=== PATIENT | female | born 1955 | race Hispanic/Latino ===

== ENCOUNTER → 2019-08-06 | Outpatient (CLI) | payer OTHER ==
[~2019-08-06] VITALS: Ht 152.4 cm; Wt 69.4 kg
[~2019-08-06] MED LIST: REGADENOSON 0.4 MG/5 ML PF SYG IVP SCH
== END | disposition home or self-care (01) ==
LOC: SHCH 08:41
PROVIDERS: ATTEND Internal Medicine Cardiovascular Disease
DX: R07.9 Chest pain, unspecified (principal)
CPT/HCPCS: 78452; 93017; 96374; A9500 ×2; J2785

== ENCOUNTER 2019-08-22 07:15 | Day surgery (SDC) | payer OTHER ==
[2019-08-20 15:04] LABS: EOSINOPHILS % (AUTO) 3.9 % (0.0-8.0); HEMATOCRIT 40.1 % (36-48); LYMPHOCYTES % (AUTO) 24.5 % (21.0-51.0); MEAN CORPUSCULAR HEMOGLOBIN 31.2 pg (27.0-33.0); MEAN CORPUSCULAR VOLUME 91.9 fL (79-99); MONOCYTES % (AUTO) 6.4 % (3.0-13.0); NEUTROPHILS % (AUTO) 64.2 % (40.0-77.0); NUCLEATED RED BLOOD CELLS 0.1 % (0.0-0.19); PLATELET COUNT (AUTO) 194 K/uL (130-400); RED BLOOD CELL COUNT(AUTO) 4.36 MIL/uL (4.00-5.50); RED CELL DISTRIBUTION WIDTH 12.8 % (11.0-15.5); WHITE BLOOD COUNT (AUTO) 7.7 K/uL (4.8-10.8)
[2019-08-20 15:09] VITALS: BP 111/49
[2019-08-20 15:09] LABS: APPEARANCE,URINE Clear (CLEAR); BILIRUBIN,URINE Negative (NEGATIVE); COLOR,URINE Yellow (YELLOW); GLUCOSE, URINE (UA) Negative (NEGATIVE); KETONES,URINE Negative (NEGATIVE); LEUKOCYTE ESTERASE ,URINE Small (NEGATIVE); NITRATE,URINE Negative (NEGATIVE); OCCULT BLOOD,URINE Negative (NEGATIVE); PH,URINE 6.5 (5.0-8.0); PROTEIN,URINE Negative (NEGATIVE)
[2019-08-20 15:14] LABS: CREATININE 1.1 mg/dL (0.5-1.5)
[2019-08-20 15:17] LABS: INR 0.93 (0.85-1.15); PARTIAL THROMBOPLASTIN TIME 26.6 SEC (26.3-35.5); PROTHROMBIN TIME 9.8 SEC (9.6-11.6)
[2019-08-20 15:27] LABS: BACTERIA,URINE Few /HPF (None Seen); SQUAMOUS EPITHELIAL CELL,UR Few /HPF (0-2)
--- NOTE | 2019-08-21 15:51 | NUR ---
LABS ABNORMAL UA REPORTED TO SONNY DAVENPORT, NO FURTHER ORDERS GIVEN
[~2019-08-22] VITALS: Ht 157.5 cm; Wt 69.9 kg
[2019-08-22] VITALS (9 sets, daily range): BP systolic 92–110; BP diastolic 46–59
[~2019-08-22 07:15] MED LIST changes: +ATOR-2 PO; +ISOS10TA2 PO; +ISOS5TAB5 SL; +LISI40TA4 PO; +PARO-37 PO; -REGADENOSON 0.4 MG/5 ML PF SYG IVP SCH; +SODIUM CHLORIDE 0.9% 500ML 500 ML IV SCH
[2019-08-22] MEDS ORDERED: LIDOCAINE HCL 2% 20ML ONE (10:08)
[2019-08-22] MEDS ORDERED: NITROGLYCERIN 5 MG/ML 10 ML VIAL IV ONE (10:08)
[2019-08-22] MEDS ORDERED: IOHEXOL-350 50ML VIAL IV ONE ×2 (10:08→11:21)
[2019-08-22] MEDS ORDERED: IOHEXOL-350 75 ML VIAL IV ONE (10:08)
[2019-08-22] MEDS ORDERED: NICARDIPINE HCL 25 MG/10 ML ML IV ONE (10:42)
[2019-08-22] MEDS ORDERED: HEPARIN SODIUM 1000UNIT/ML 10ML VIAL ONE (10:58)
[2019-08-22] MEDS ORDERED: MIDAZOLAM HCL 1 MG/ML 2ML VIAL ONE (11:01)
[2019-08-22] MEDS ORDERED: FENTANYL CITRATE PF 50 MCG/1 ML 2ML VIAL ONE (11:01)
[2019-08-22] MEDS ORDERED: SODIUM CHLORIDE 0.9% 1000ML 1,000 ML IV SCH (11:36)
== END 2019-08-22 15:20 | disposition home or self-care (01) ==
LOC: DAH 07:15
PROVIDERS: ATTEND Internal Medicine Cardiovascular Disease
DX: I20.8 Other forms of angina pectoris (principal); R94.39 Abnormal result of other cardiovascular function study; I10 Essential (primary) hypertension; E78.5 Hyperlipidemia, unspecified; Z79.899 Other long term (current) drug therapy; E78.00 Pure hypercholesterolemia, unspecified; Z90.710 Acquired absence of both cervix and uterus; Z98.51 Tubal ligation status; Z98.890 Other specified postprocedural states; Z82.49 Family history of ischemic heart disease and other diseases of the circulatory system
CPT/HCPCS: 36415; 71045; 80048; 81001; 85025; 85610; 85730; 93005; 93458; A4215; A4216; A4221; A4222; A4223 ×3; A4606; A4663; C1769; C1894; J1644 ×2; J2250; J3010; J3490 ×3; Q9967 ×2; 99156; 99157

== ENCOUNTER 2019-09-28 23:43 | Emergency (ER) | payer OTHER ==
[~2019-09-28 23:43] MED LIST changes: -ISOS10TA2 PO; -ISOS5TAB5 SL; -SODIUM CHLORIDE 0.9% 500ML 500 ML IV SCH
[2019-09-29] MEDS ORDERED: METHYLPREDNISOLONE SOD SUCC 40MG/ML 1ML ONE (00:15)
[2019-09-29] MEDS ORDERED: DiphenhydrAMINE HCL 50 MG/ML VIAL ONE (00:15)
[2019-09-29] MEDS ORDERED: FAMOTIDINE/PF 20 MG/2 ML VIAL IV ONE (00:15)
[2019-09-29] MEDS ORDERED: ONDANSETRON HCL 4 MG/2 ML VIAL ONE (01:05)
[2019-09-29] MEDS ORDERED: SODIUM CHLORIDE 0.9% 1000ML 1,000 ML IV ONE (01:06)
[2019-09-29 02:30] LABS: APPEARANCE,URINE Clear (CLEAR); BILIRUBIN,URINE Negative (NEGATIVE); COLOR,URINE Yellow (YELLOW); GLUCOSE, URINE (UA) Negative (NEGATIVE); KETONES,URINE Negative (NEGATIVE); LEUKOCYTE ESTERASE ,URINE Negative (NEGATIVE); NITRATE,URINE Negative (NEGATIVE); OCCULT BLOOD,URINE Negative (NEGATIVE); PH,URINE 6.5 (5.0-8.0); PROTEIN,URINE Negative (NEGATIVE); UROBILINOGEN,URINE 0.2 mg/dL (0.2-1.0)
== END 2019-09-29 02:59 | disposition home or self-care (01) ==
LOC: EDH 23:43
DX: L50.0 Allergic urticaria (principal); R11.0 Nausea; F41.9 Anxiety disorder, unspecified; E78.5 Hyperlipidemia, unspecified; I10 Essential (primary) hypertension; Z88.1 Allergy status to other antibiotic agents; Z90.710 Acquired absence of both cervix and uterus; Z98.61 Coronary angioplasty status
CPT/HCPCS: 81003; 96361; 96374; 96375; 99284; J1200; J2405; J2920; J3490; J7030

== ENCOUNTER → 2024-12-26 | Outpatient (CLI) | payer OTHER, MEDICARE ==
[~2024-12-26] MED LIST changes: -LISI40TA4 PO; +LISI40TA9 PO
[2024-12-26 12:27] LABS: BASOPHILS # (AUTO) 0.05 K/uL (0.00-0.20); BASOPHILS % (AUTO) 0.9 % (0.0-5.0); EOSINOPHILS # (AUTO) 0.21 K/uL (0.00-0.70); EOSINOPHILS % (AUTO) 3.8 % (0.0-8.0); HEMATOCRIT 45.9 % (36-48); IMMATURE GRANULOCYTE ABSOLUTE 0.01 K/uL (0-1); LYMPHOCYTES # (AUTO) 1.4 K/uL (1.0-4.8); LYMPHOCYTES % (AUTO) 24.4 % (21.0-51.0); MEAN CORPUSCULAR HEMOGLOBIN 31.1 pg (27.0-33.0); MEAN CORPUSCULAR HGB CONC 32.9 g/dL (32.0-36.0); MEAN CORPUSCULAR VOLUME 94.4 fL (79-99); MONOCYTES # (AUTO) 0.4 K/uL (0.1-1.0); MONOCYTES % (AUTO) 7.4 % (3.0-13.0); NEUTROPHILS # (AUTO) 3.5 K/uL (1.8-7.7); NEUTROPHILS % (AUTO) 63.3 % (40.0-77.0); PLATELET COUNT (AUTO) 193 K/uL (130-400); RED BLOOD CELL COUNT(AUTO) 4.86 MIL/uL (4.00-5.50); RED CELL DISTRIBUTION WIDTH 12.5 % (11.0-15.5); WHITE BLOOD COUNT (AUTO) 5.5 K/uL (4.8-10.8)
[2024-12-26 12:59] LABS: BILIRUBIN,TOTAL 0.5 mg/dL (0.2-1.0); CREATININE 0.8 mg/dL (0.5-1.0); POTASSIUM 3.9 mmol/L (3.5-5.1); TOTAL PROTEIN, SERUM 7.5 g/dL (6.0-8.3)
== END | disposition home or self-care (01) ==
LOC: LAB 08:48
PROVIDERS: ATTEND Internal Medicine Cardiovascular Disease
DX: R07.9 Chest pain, unspecified (principal)
CPT/HCPCS: 36415; 80053; 80061; 85025

== ENCOUNTER → 2025-01-01 | Outpatient (CLI) | payer OTHER, MEDICARE ==
[~2025-01-01] MED LIST changes: +IOHEXOL 350 MG/ML 100ML INFUS..BTL IV ONE
--- NOTE | 2025-01-01 11:46 | HMCIMG ---
CT CARDIAC ANGIO W/CONT. CCTA HISTORY: Chest pain COMPARISON: None TECHNIQUE: Multiple sequential axial images of the chest were obtained along with the CT angiogram of the chest study. Patient was given 100 cc of Omnipaque through intravenous route. FINDINGS: There is no evidence of pulmonary nodule or parenchymal disease. No pleural effusion or pericardial effusion is seen. There is no evidence of pneumothorax. There are normal size mediastinal and hilar lymph nodes. The heart is not enlarged. Degenerative changes of the thoracolumbar spine are present. IMPRESSION: 1. No evidence of pulmonary nodule or effusion is seen. Please see CT angiogram report of coronary arteries.
--- NOTE | 2025-01-04 18:59 | CARDIOLOGY ---
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 A dedicated, limited window, coronary imaging protocol was used, with single breath-hold, retrospective ECG gating, and automated arrhythmia rejection. 100 cc of low osmolar contrast agent: Omnipaque 350 was delivered via a 18-gauge IV catheter in the right antecubital fossa, using a power injector and followed by 60 cc of normal saline bolus as a chaser. Collimated images were reformatted at 0.5 mm intervals, and sent to an offline independent workstation for interpretation, using 3D anatomic reconstructions: Curved multiplanar reconstructions, maximum intensity projections, and multiplanar imaging. No metoprolol was administered prior to scanning due to low baseline heart rate. 0.4 mg SL nitroglycerin was given. CORONARY ARTERY DESCRIPTIONS: The coronary arteries arise in normal position. Left main coronary artery: Normal caliber vessel that bifurcates into the LAD and LCx. No stenosis. Left anterior descending coronary artery: Normal caliber vessel and gives rise t o diagonal and septal branches. No stenosis. Left circumflex coronary artery: Normal caliber, nondominant and gives rise to a large OM branch. No stenosis. Right coronary artery: Large, dominant vessel giving rise to the PL and PDA branches. No stenosis. CAD-RADs: 0, absence of CAD. Thoracic Aorta: Normal diameter. Katia Cade MD Cardiovascular Disease [facility] KATIA CADE MD Jan 04, 2025 18:59
== END | disposition home or self-care (01) ==
LOC: RAH 08:59
PROVIDERS: ATTEND Internal Medicine Cardiovascular Disease
DX: R07.9 Chest pain, unspecified (principal); M47.815 Spondylosis without myelopathy or radiculopathy, thoracolumbar region
CPT/HCPCS: 75574; Q9967

== ENCOUNTER → 2025-01-09 | Outpatient (CLI) | payer OTHER, MEDICARE ==
[~2025-01-09] MED LIST changes: -IOHEXOL 350 MG/ML 100ML INFUS..BTL IV ONE
--- NOTE | 2025-01-14 21:37 | HMCSR ---
APPROVED REPORT EXAM: Two-dimensional and M-mode echocardiogram with Doppler and color Doppler. INDICATION ICD: R07.9 Chest pain 2D Dimensions RVDd4.0 cmLVEF(%)67.1 (>50%)LVED Vol(simp.)78.0 mL IVSd0.8 (0.7-1.1cm)FS(%)38 %LVES Vol(simp.)31.0 mL LVDd5.6 (3.8-5.6cm)LA (2D)3.5 (1.6-4.0cm)LVEF(%, simp.)61 % PWd0.8 (0.7-1.1cm)Ao Root(2D)2.5 (2.0-3.7cm)LA ESV INDEX (BP)20.53 mL/m2 LVDs3.5 (2.5-4.0cm)LVOT diam2.0 (1.8-2.4cm) IVC diam1.2 cm Aortic Valve AoV Vmax1.9 m/Yvan Peak GR14.3 mmHgLVOT Vmax1.1 m/s AoV VTI0.4 mAo Mean GR6.9 mmHgLVOT VTI0.22 m DEDRA (VMAX)1.8 cm2Al P1/2T622 msAVA (VTI) 1.8 cm2 Mitral Valve MV E Vmax51.4 cm/sDECEL Durm009 ms MV A Vmax60.7 cm/s E/A ratio0.8 TDI E/E' Yrctro62.2E/E' Fpjlecw36.1 Pulmonary Valve PV Vmax0.9 m/sPV VTI0.20 mPV Mean GR2 mmHg PV Peak GR3.1 mmHgPI End Serina. Evaristo 0.9 cm/s Tricuspid Valve RAP (EST) 3 mmHg Left Ventricle Left ventricular cavity size is normal. There is normal LV segmental wall motion. There is normal lef t ventricular wall thickness. LVEF is 60-65%. The left ventricular diastolic function is normal. Right Ventricle The right ventricle is normal size. The right ventricular systolic function is normal. Atria The left atrium size is normal. Right atrium is not well visualized. Aortic Valve Aortic valve is trileaflet. Aortic valve leaflets are sclerotic but open well. Trace aortic regurgita tion. Calculated aortic valve area is 1.8 cm2 with maximum pressure gradient of 14.4 mmHg and mean pr essure gradient of 6.9 mmHg. Mitral Valve Mitral valve leaflets are mildly sclerotic but open well. Mitral annular calcification is mild. Darline l regurgitation is trace. There is no mitral valve stenosis. Tricuspid Valve The tricuspid valve leaflets appear normal. There is trace tricuspid regurgitation. Pulmonic Valve The pulmonic valve leaflets are thin and pliable; valve motion is normal. There is trace pulmonic viktor vular regurgitation. Great Vessels The aortic root is normal in size. The IVC is normal in size and collapses >50% with inspiration. Pericardium Trivial pericardial effusion. Conclusion LVEF is 60-65%. Trace aortic regurgitation. Calculated aortic valve area is 1.8 cm2 with maximum pressure gradient of 14.4 mmHg and mean pressure gradient of 6.9 mmHg. Mitral regurgitation is trace. Trivial pericardial effusion.
== END | disposition home or self-care (01) ==
LOC: SHCH 12:48
PROVIDERS: ATTEND Internal Medicine Cardiovascular Disease
DX: R07.9 Chest pain, unspecified (principal)
CPT/HCPCS: 93306